=== PATIENT | female | born 2005 | race Hispanic/Latino ===

== ENCOUNTER 2024-03-11 21:44 | Emergency (ER) | payer OTHER ==
[~2024-03-11] VITALS: Ht 182.9 cm; Wt 136.1 kg
[2024-03-11 21:46] VITALS: PULSE 105; RESP 18; TEMP 99.5
[2024-03-11] MEDS ORDERED: CIPRO HC OTIC S10 ML RIGHT EAR (22:35)
[2024-03-11 23:03] VITALS: BP 128/63; PULSE 68; RESP 18; TEMP 98.2; O2SAT 100
== END 2024-03-11 23:05 | disposition home or self-care (01) ==
LOC: FSED 22:00
DX: H60.91 Unspecified otitis externa, right ear (principal)
CPT/HCPCS: 99283

== ENCOUNTER → 2025-01-19 | Day surgery (SDC) | payer OTHER ==
[2025-01-18 12:51] LABS: BASOPHILS % 0.4 % (0.0-1.0); EOSINOPHILS % 0.9 % (0.0-6.0); LYMPHOCYTES % 23.3 % (18.0-39.1); MONOCYTES % 5.4 % (4.4-11.3); NEUTROPHILS % 69.2 % (38.7-80.0); RED CELL DISTRIBUTION WIDTH 13.2 % (11.7-14.4)
[~2025-01-19] MED LIST: ACETAMINOPHEN 1000 MG/100 ML 100 ML IV ONE; CIPRO HC OTIC S10 ML RIGHT EAR; FENTANYL CITRATE/PF 100MCG/2 ML INJ ONE; MIDAZOLAM HCL 2 MG/2 ML VIAL ONE; PROPOFOL IV EMULSION 10 MG/ML 20 ML VIAL ONE; ROCURONIUM BROMIDE 1 ML IV ONE; SUCCINYLCHOLINE CHLORIDE 20 MG/ML 10ML VIAL ONE; SUGAMMADEX SODIUM 200 MG/2 ML VIAL IV ONE; SULFAMETHOXAZOL20 ML PO; ULTRAM 50MG50 MG PO
[2025-01-19] MEDS: LACTATED RINGER'S 1,000 ML ONE (06:01)
[2025-01-19] MEDS: CEFAZOLIN SODIUM 2 GM ONE (06:02)
[2025-01-19 07:47] VITALS: TEMP 97.3
[2025-01-19] MEDS: FENTANYL CITRATE/PF 100MCG/2 ML INJ ONE (08:05)
[2025-01-19 08:52] VITALS: BP 104/60; PULSE 87; RESP 16; O2SAT 98
== END | disposition home or self-care (01) ==
LOC: OR 05:29
PROVIDERS: ATTEND Surgery
DX: L05.01 Pilonidal cyst with abscess (principal); E66.01 Morbid (severe) obesity due to excess calories; I83.90 Asymptomatic varicose veins of unspecified lower extremity; Z68.43 Body mass index [BMI] 50.0-59.9, adult; Z79.2 Long term (current) use of antibiotics; Z01.812 Encounter for preprocedural laboratory examination
CPT/HCPCS: 11770; 36415; 84702; 85025; 87071; 87075; 87205; 88304; J0131; J0330; J0690; J2250; J2704; J3010; J7121